=== PATIENT | male | born 2000 | race Caucasian/White ===

== ENCOUNTER 2021-06-21 22:56 | Emergency (ER) | payer BC ==
[2021-06-22] MEDS ORDERED: PREDNISONE20 M1 PO (00:04)
[2021-06-22 00:14] VITALS: BP 123/75
== END 2021-06-22 00:14 | disposition home or self-care (01) ==
LOC: ED 22:56
DX: L50.9 Urticaria, unspecified (principal); T36.1X5A Adverse effect of cephalosporins and other beta-lactam antibiotics, initial encounter; F17.210 Nicotine dependence, cigarettes, uncomplicated
CPT/HCPCS: J2930